=== PATIENT | female | born 1990 | race Caucasian/White ===

== ENCOUNTER 2020-04-15 14:01 | Emergency (ER) | payer BC ==
[~2020-04-15] VITALS: Ht 170.2 cm; Wt 72.7 kg
[2020-04-15] MEDS ORDERED: ondansetron 4mg rapidly disintigrating tab PO ONE (14:50)
[2020-04-15] MEDS ORDERED: HYDROcodone/acetaminophen 5mg/325mg tablet PO ONE (14:50)
[2020-04-15] MEDS ORDERED: HYDR-3965 PO (14:51)
[2020-04-15 14:58] VITALS: BP 126/84
== END 2020-04-15 15:08 | disposition home or self-care (01) ==
LOC: ER 14:01
DX: S82.891A Other fracture of right lower leg, initial encounter for closed fracture (principal); Z79.899 Other long term (current) drug therapy; W19.XXXA Unspecified fall, initial encounter; Y93.89 Activity, other specified; Y92.89 Other specified places as the place of occurrence of the external cause; Y99.8 Other external cause status
CPT/HCPCS: 29515; 73610; 99283